=== PATIENT | male | born 1990 | race Caucasian/White ===

== ENCOUNTER → 2024-08-29 08:13 | Outpatient (CLI) | payer OTHER, SELFPAY ==
[2024-08-29 08:58] LABS: COVID-19 CEPHEID 4-PLEX PCR Negative (Negative); Influenza A - CEPHEID Flu A NEGATIVE (NEGATIVE); Influenza B - CEPHEID Flu B NEGATIVE (NEGATIVE); Respiratory Syncytial Virus Negative (Negative)
== END ==
PROVIDERS: Visit Provider Student in an Organized Health Care Education/Training Program
DX: R05.1 Acute cough (principal)
CPT/HCPCS: 0241U

== ENCOUNTER 2024-09-08 05:58 | Emergency (ER) | payer OTHER, SELFPAY ==
[2024-09-08] VITALS (10 sets, daily range): BP systolic 115–131; BP diastolic 74–81; PULSE 92–115; RESP 17–18; TEMP 37.9; O2SAT 93–97; BMI 25.8
--- NOTE | 2024-09-08 06:08 | DI.RAD.S_ITS ---
PROCEDURE: XR CHEST 2V INDICATIONS: fever TECHNIQUE: 2 views of the chest were acquired. COMPARISON: None. FINDINGS: Surgical changes and devices: None. Lungs and pleura: Lungs are clear. No pleural effusions or pneumothorax. Mediastinum: Mediastinal contours are normal. Heart size is normal. Bones and chest wall: No suspicious bony abnormalities. Soft tissues appear unremarkable. IMPRESSION: No acute cardiopulmonary abnormality is seen. There is no significant discrepancy when compared to the overnight preliminary report. Approved by: Jovani Singh M.D. on 09/08/2024 at 8:12
[2024-09-08 06:53] LABS: Add Manual Diff / Slide Review NO; Basophils Absolute Auto 100 /uL (0-100); Basophils Percent Auto 1.1 % (0-2); Eosinophils Absolute Auto 100 /uL (0-450); Eosinophils Percent Auto 0.9 % (2-4); Hematocrit 38.3 % (41-53); Lymphocytes Absolute Auto 6800 /uL (1100-4500); Lymphocytes Percent Auto 51.6 % (25-40); Mean Corpuscular HGB Conc 33.9 % (30-36); Mean Corpuscular Hemoglobin 28.2 PG (26-34); Mean Corpuscular Volume 83.4 fL (80-100); Monocytes Absolute Auto 1300 /uL (0-900); Monocytes Percent Auto 9.4 % (3-14); Neutrophils Absolute Auto 4900 /uL (1500-7000); Platelet Count 162 X10^3/uL (150-400); Red Cell Distribution Width 13.3 % (11.6-14.8); White Blood Cell Count 13.3 X10^3/uL (4.5-11.0)
--- NOTE | 2024-09-08 07:09 | ED.GENADULT ---
HPI - General Adult General Chief complaint: Fever Stated complaint: fever 104 Time Seen by Provider: 09/08/24 06:00 Source: patient Mode of arrival: Ambulatory History of Present Illness HPI narrative: 33-year-old gentleman with minimal past medical history presents complaining of a fever ongoing for 16 days now. He has fevers continuing into the 104 range that do respond to Tylenol and ibuprofen, does not have a cough does have body aches, he had had some nasal congestion and was diagnosed with pansinusitis started on Augmentin with no change to symptoms. He is continuing to eat and drink but has minimal appetite particularly when he is having acute fever. No jaundice no headaches no nuchal rigidity. No vomiting, diarrhea, palpitations or chest Related Data Home Medications Medication Instructions Recorded Confirmed dextroamphetamine sulfate 5 mg 2.5 - 5 mg PO BID 08/01/24 09/03/24 tablet emtricitabine 200 mg-tenofovir 1 tab PO DAILY 09/03/24 09/03/24 alafenamide fumarate 25 mg tablet (Descovy) lisdexamfetamine 40 mg capsule mg PO DAILY 09/03/24 09/03/24 polymyxin B sulfate 10,000 EYE-BOTH 09/03/24 09/03/24 unit-trimethoprim 1 mg/mL eye drops Previous Rx's Medication Instructions Recorded amoxicillin 875 mg-potassium 1 tab PO Q12H 7 days #14 tabs 09/03/24 clavulanate 125 mg tablet Allergies Allergy/AdvReac Type Severity Reaction Status Date / Time No Known Drug Allergies Allergy Verified 09/03/24 13:40 Review of Systems Review of Systems Narrative: Pertinent positive and negative findings as per HPI Patient History Social History Smoking Status: Never smoker Smoking Status: Never smoker Exam Initial Vital Signs Initial Vital Signs: Vital Signs Temperature 100.2 F H 09/08/24 06:08 Pulse Rate 115 H 09/08/24 06:08 Respiratory Rate 18 09/08/24 06:08 Blood Pressure 131/81 09/08/24 06:08 Pulse Oximetry 96 09/08/24 06:08 Oxygen Delivery Method Room Air 09/08/24 06:08 General: Slightly fatigued but otherwise in no acute distress. Able to give a complete and coherent history. Well-nourished well-developed HEENT: Moist mucous membranes, normal sclera with reactive pupils, Neck: No cervical adenopathy Respiratory: Lungs are clear to auscultation, no wheezing no rales no rhonchi. Full and symmetrical air movement Cardiac: Regular rate and rhythm no murmurs no bruits Abdomen: Soft, nontender, no hepatomegaly Skin: Warm and dry, no jaundice, no rashes Neurologic: Grossly neurologically intact with no obvious asymmetries or abnormalities Extremities: No trauma, well perfused Psych: Cooperative, appropriate insight and affect Course Orders Ordered: ED Orders 09/08/24 06:07 Urinalysis and Microscopic Stat 09/08/24 06:08 XR chest 2V Stat 09/08/24 06:45 CBC Auto Diff [Complete Blood Count AUTO DIFF] Stat CMP [Comprehensive Metabolic Panel] Stat Lactate (Lactic Acid) Stat Monotest Stat Procalcitonin Stat Respiratory Panel (Film Array) Stat 09/08/24 07:17 Blood Culture Stat 09/08/24 07:55 HIV 1 & 2 Ab/Ag 4th Gen Combo Stat Hepatitis Acute Panel Stat Vital Signs Vital signs: Vital Signs - 8 hr 09/08/24 06:08 09/08/24 06:53 09/08/24 07:00 Temperature 100.2 F H Pulse Rate 115 H 98 H 98 H Respiratory Rate 18 Blood Pressure 131/81 Pulse Oximetry 96 94 94 Oxygen Delivery Method Room Air 09/08/24 07:30 09/08/24 08:03 09/08/24 08:06 Temperature Pulse Rate 92 H 110 H 99 H Respiratory Rate Blood Pressure Pulse Oximetry 93 96 94 Oxygen Delivery Method 09/08/24 08:06 09/08/24 08:31 09/08/24 08:31 Temperature Pulse Rate 97 H Respiratory Rate Blood Pressure 126/77 121/78 Pulse Oximetry 96 Oxygen Delivery Method 09/08/24 09:00 09/08/24 09:00 09/08/24 09:30 Temperature Pulse Rate 99 H 93 H Respiratory Rate Blood Pressure 116/75 Pulse Oximetry 97 96 Oxygen Delivery Method 09/08/24 09:30 Temperature Pulse Rate Respiratory Rate Blood Pressure 115/74 Pulse Oximetry Oxygen Delivery Method Medical Decision Making Lab Data 09/08/24 06:45 09/08/24 06:45 Labs: Lab Results 09/08/24 09/08/24 Range/Units 06:45 07:55 WBC 13.3 H (4.5-11.0) X10^3/uL RBC 4.60 (4.5-5.9) X10^6/uL Hgb 13.0 L (13.5-17.5) g/dL Hct 38.3 L (41-53) % MCV 83.4 (80-100) fL MCH 28.2 (26-34) PG MCHC 33.9 (30-36) % RDW 13.3 (11.6-14.8) % Plt Count 162 (150-400) X10^3/uL Neut % (Auto) 37.0 L (50-75) % Lymph % (Auto) 51.6 H (25-40) % [place] % (Auto) 9.4 (3-14) % Eos % (Auto) 0.9 L (2-4) % Baso % (Auto) 1.1 (0-2) % Neut # (Auto) 4900 (9809-4799) /uL Lymph # (Auto) 6800 H (0856-0887) /uL [place] # (Auto) 1300 H (0-900) /uL Eos # (Auto) 100 (0-450) /uL Baso # (Auto) 100 (0-100) /uL Sodium 132 L (137-145) mmol/L Potassium 3.9 (3.4-5.1) mmol/L Chloride 101 (98-107) mmol/L Carbon Dioxide 25 (22-32) mmol/L BUN 14 (9-20) mg/dL Creatinine 1.08 (0.66-1.25) mg/dL Estimated GFR > 60 (>60) mL/min BUN/Creatinine Ratio 13.0 (6-22) Glucose 118 H (70-100) mg/dL Lactate 0.9 (0.7-2.1) mmol/L Calcium 7.9 L (8.4-10.2) mg/dL Total Bilirubin 0.8 (0.2-1.3) mg/dL AST 294 H (17-59) IU/L ALT 312 H (<50) IU/L Alkaline Phosphatase 176 H (38-126) U/L Total Protein 6.5 (6.3-8.2) g/dL Albumin 3.2 L (3.5-5.0) g/dL Globulin 3.3 (1.7-4.1) g/dL Albumin/Globulin Ratio 1.0 (1.0-2.8) Procalcitonin 0.505 H (<0.5) ng/mL Chlamy pneumoniae PCR Not detected (Not Detect) Adenovirus (PCR) Not detected (Not Detect) B. pertussis DNA (PCR) Not detected (Not Detect) B.parapertussis DNA PCR Not detected (Not Detecte) Coronavirus OC43 (PCR) Not detected (Not Detect) Coronavirus HKU1 (PCR) Not detected (Not Detect) Coronavirus 229E (PCR) Not detected (Not Detect) SARS-CoV-2 (PCR) Not detected (Not Detecte) Coronavirus NL63 (PCR) Not detected (Not Detect) Monoscreen Negative (Negative) HIV 1&2 Ab/P24 Ag 4thGn Negative (NEGATIVE) Human Metapneumovir PCR Not detected (Not Detect) Influenza Type A (PCR) Not detected (Not Detect) Influenza Type B (PCR) Not detected (Not Detect) M. pneumoniae (PCR) Not detected (Not Detect) Parainfluenza 1 (PCR) Not detected (Not Detect) Parainfluenza 2 (PCR) Not detected (Not Detect) Parainfluenza 3 (PCR) Not detected (Not Detect) Parainfluenza 4 (PCR) Not detected (Not Detect) RSV (PCR) Not detected (Not Detect) Entero/Rhino (PCR) Not detected (Not Detect) MDM Narrative Medical decision making narrative: CC: Continued viral symptoms with fever for 16 days Complicating co-morbidities: None Data collected from: patient Social determinants of health that may influence the patients condition: Patient notes that he does have sex with men, was HIV tested and negative for about a month and a half ago, does use HIV prophylaxis as needed. Does not describe extended travel [place], no interesting animal exposures Differential considered: Sequential viruses, he has tested negative for influenza at the beginning of this episode, hepatitis acute, primary HIV infection although this seems like a prolonged course for that, secondary bacterial infection, neoplastic presentation although again, fevers seem higher than I would expect it with a Exam documented above, pertinent findings include: Aside from some mild fatigue exam is otherwise benign. Lab Test results independently reviewed as above. Pertinent findings: CBC shows leukocytosis at 13.3 however lymphocytes are predominant at 51.6% suggesting viral etiology, H and H are 13 and 38, platelets are normal Chemistries show mild hyponatremia at 1:32 a.m., normal renal function, AST ALT and alk-phos are all elevated with normal bilirubin. Calcium is low at 7.9 Procalcitonin is minimally elevated/essentially normal at 0.0505 Viral panel does not show obvious etiology Monospot is negative HIV is negative Hepatitis panel is pending we will be available till tomorrow. I have encouraged patient to look up results on the portal and follow up with his primary physician Imaging studies independently reviewed: Chest x-ray shows some perihilar fullness consistent with a viral syndrome Re-evaluations: With standard full respiratory panel negative, fevers to 104, currently on Augmentin, no recent travel, no IV drug use or other endocarditis risk factors, no hypotension, no tachycardia, no unexplained weight loss, no headaches to suggest meningitis we will add hepatitis HIV and mono tests Discussion: given clinical presentation, length them symptoms, no improvement with antibiotics and blood work suggesting lymphocytosis barium this overall presentation looks very much viral. I am not seeing signs of secondary bacterial infection, intra-abdominal infection, cardiomyopathy, endocarditis, meningitis. Additional imaging is not indicated at this time. Viral panel, HIV and mono are all unremarkable. Given the mildly elevated LFTs hepatitis panel has been ordered but will not be available until tomorrow. With normal bilirubin and benign belly exam I do not suspect cholecystitis or other liver infection conservative management is recommended. No indication for hospitalization today, questions are answered and he is discharged Discharge Plan Departure Patient Disposition: Home Clinical Impression: Viral infection Fever Qualifiers: Fever type: unspecified Qualified Code(s): R50.9 - Fever, unspecified Instructions: DI for Fever (Symptom) -- Adult Activity Restrictions/Additional Instructions: Thank you for coming in today your clinical presentation, story of how long your symptoms have been present the fact that you did not improve with Augmentin as well as all of your blood work today indicate that you have a virus. It was not able to identify which virus. Did look through our Respiratory panel which includes more of the common things we have been seeing recently including COVID, influenza, parainfluenza, RSV and about 18 others. You do not have mono you do not have HIV. Your liver enzymes were slightly elevated which is common with viral syndrome. A hepatitis panel was drawn and results should be available tomorrow. You can look up results in the patient portal. If you are seeing a positive police feel free to return to the emergency department or talk to your primary care physician. I am at this time there is nothing that we would immediately due other than conservative management for your treatments if you did have 1 of the multiple hepatitis viruses In the meantime, stay well hydrated, using 400 mg of ibuprofen (2 [id number] pills) and 1 Tylenol every 6 hours can be very helpful in controlling pain. I do suspect that the reason that your symptoms have continued for so long as that you have had 2 viruses in a row. If you find that you are getting worse or develop any new symptoms, please feel free to return to the emergency department for further evaluation. Prescriptions: No Action dextroamphetamine sulfate 5 mg tablet 2.5 - 5 mg PO BID lisdexamfetamine 40 mg capsule PO DAILY polymyxin B sulf-trimethoprim 10,000 unit- 1 mg/mL drops EYE-BOTH Descovy 200-25 mg tablet 1 tab PO DAILY amoxicillin-pot clavulanate 875-125 mg tablet 1 tab PO Q12H 7 Days Qty: 14 0RF Referrals: Miscellaneous,Doctor, MD [Primary Care Provider] - Stand Alone Forms: Patient Portal/API/Survey
[2024-09-08 07:14] LABS: Lactate (Lactic Acid) 0.9 mmol/L (0.7-2.1)
[2024-09-08 07:15] LABS: Alanine Aminotransferase 312 IU/L (<50); Albumin 3.2 g/dL (3.5-5.0); Alkaline Phosphatase 176 U/L (38-126); Aspartate Aminotransferase 294 IU/L (17-59); Bilirubin Total 0.8 mg/dL (0.2-1.3); Blood Urea Nitrogen 14 mg/dL (9-20); Calcium 7.9 mg/dL (8.4-10.2); Carbon Dioxide 25 mmol/L (22-32); Chloride 101 mmol/L (98-107); Estimated Glomerular Filt Rate > 60 mL/min (>60); Globulin 3.3 g/dL (1.7-4.1); Glucose 118 mg/dL (70-100); HEMOLYSIS < 15 (0-50); Potassium 3.9 mmol/L (3.4-5.1); Sodium 132 mmol/L (137-145); Total Protein 6.5 g/dL (6.3-8.2)
[2024-09-08 07:27] LABS: Procalcitonin 0.505 ng/mL (<0.5)
[2024-09-08 07:38] LABS: Adenovirus Not Detected (Not Detect); B. parapertussis Not Detected (Not Detecte); Bordetella pertussis Not Detected (Not Detect); Chlamydophila pneumoniae Not Detected (Not Detect); Coronavirus 229E Not Detected (Not Detect); Coronavirus HKU1 Not Detected (Not Detect); Coronavirus NL 63 Not Detected (Not Detect); Coronavirus OC43 Not Detected (Not Detect); Human Metapneumovirus Not Detected (Not Detect); Human Rhinovirus/Enterovirus Not Detected (Not Detect); Influenza A Not Detected (Not Detect); Influenza B Not Detected (Not Detect); Mycoplasma pneumoniae Not Detected (Not Detect); Parainfluenza Virus 1 Not Detected (Not Detect); Parainfluenza Virus 2 Not Detected (Not Detect); Parainfluenza Virus 3 Not Detected (Not Detect); Parainfluenza Virus 4 Not Detected (Not Detect); Respiratory Syncytial Virus Not Detected (Not Detect); SARS- CoV-2 Not Detected (Not Detecte)
[2024-09-08 08:11] LABS: Monotest Negative (Negative)
[2024-09-08 09:08] LABS: HIV 1 & 2 Ab/Ag 4th Gen Combo NEGATIVE (NEGATIVE)
[2024-09-09 00:15] LABS: HBsAg Screen Negative (Negative); Hepatitis A Antibody IgM Negative (Negative); Hepatitis B Core Antibody IgM Negative (Negative); Hepatitis C Antibody Non Reactive (Non Reactive)
== END 2024-09-08 10:09 | disposition home or self-care (01) ==
PROVIDERS: Emergency Medicine; Emergency Provider Emergency Medicine
DX: B34.9 Viral infection, unspecified (principal); R50.9 Fever, unspecified
CPT/HCPCS: 36415; 71046; 80053; 80074; 83605; 84145; 85025; 86318; 87040; 87389; 87633; 99283

== ENCOUNTER → 2024-09-22 08:01 | Outpatient (CLI) | payer OTHER, SELFPAY ==
[2024-09-22 08:31] LABS: Hematocrit 40.1 % (41-53); Hemoglobin 13.3 g/dL (13.5-17.5); Mean Corpuscular HGB Conc 33.2 % (30-36); Mean Corpuscular Hemoglobin 28.3 PG (26-34); Mean Corpuscular Volume 85.3 fL (80-100); Platelet Count 259 X10^3/uL (150-400); Red Blood Cell Count 4.71 X10^6/uL (4.5-5.9); Red Cell Distribution Width 15.1 % (11.6-14.8); White Blood Cell Count 11.3 X10^3/uL (4.5-11.0)
[2024-09-22 09:45] LABS: Anisocytosis 1+; Neutrophils Absolute Manual 3164 /uL (3000-5900); Total Cells Counted 100
== END ==
PROVIDERS: PCP Family Medicine; Referring Provider Family Medicine; Visit Provider Family Medicine
DX: R50.9 Fever, unspecified (principal); R74.8 Abnormal levels of other serum enzymes; B34.9 Viral infection, unspecified; Z83.2 Family history of diseases of the blood and blood-forming organs and certain disorders involving the immune mechanism; R79.89 Other specified abnormal findings of blood chemistry
CPT/HCPCS: 36415; 85025

== ENCOUNTER → 2024-10-23 07:27 | Outpatient (CLI) | payer OTHER, SELFPAY ==
--- NOTE | 2024-10-23 07:28 | DI.US.S_ITS ---
PROCEDURE: US ABDOMEN COMPLETE INDICATIONS: (see CN 10/05/24) TECHNIQUE: Real-time scanning was performed of the abdominal and retroperitoneal organs, with image documentation. COMPARISON: None. FINDINGS: Liver: Liver is borderline enlarged at 17.5 cm and demonstrates homogeneous echogenicity. Gallbladder: Gallbladder appears normal without gallstones, gallbladder wall thickening, or pericholecystic fluid. Sonographic Hein sign is negative. Biliary ducts: Intrahepatic bile ducts are non-dilated. Extrahepatic bile duct caliber measures 4.0 mm. Normal is 6-7 mm or less in diameter, or 10 mm or less post-cholecystectomy. Pancreas: Visualized portions of the pancreas are sonographically normal. Spleen: Spleen is normal in size and homogeneous in echotexture. Kidneys: Kidneys are normal in size and echotexture. Right kidney measures 11.1 cm long; left kidney measures 11.7 cm long. No hydronephrosis or nephrolithiasis. No solid masses. Aorta: Visualized aorta is normal in caliber at less than 3 cm. Iliacs: Proximal common iliac arteries are normal in caliber at less than 2.5 cm. IVC: Intrahepatic inferior vena cava is patent. Miscellaneous: No free abdominal fluid. IMPRESSION: 1. Normal gallbladder. No acute sonographic abnormality. 2. Borderline hepatomegaly. Approved by: Jvoani Singh M.D. on 10/23/2024 at 8:56
== END ==
LOC: US 07:28
PROVIDERS: PCP Family Medicine; Referring Provider Family Medicine; Visit Provider Family Medicine
DX: R10.9 Unspecified abdominal pain (principal); R63.4 Abnormal weight loss; R76.8 Other specified abnormal immunological findings in serum; D72.829 Elevated white blood cell count, unspecified; R50.9 Fever, unspecified; R74.8 Abnormal levels of other serum enzymes; R53.83 Other fatigue; N52.9 Male erectile dysfunction, unspecified; Z83.2 Family history of diseases of the blood and blood-forming organs and certain disorders involving the immune mechanism
CPT/HCPCS: 76700